=== PATIENT | female | born 1975 | race Caucasian/White ===

== ENCOUNTER 2018-02-03 19:07 | Emergency (ER) | payer SELFPAY ==
[2018-02-03 19:19] VITALS: BP 148/78; PULSE 98; O2SAT 97
--- NOTE | 2018-02-03 19:30 | ERPHSYRPT ---
- History of Present Illness Time Seen by Provider: 02/03/18 19:20 Source: patient, police Exam Limitations: clinical condition Patient Subjective Stated Complaint: per law enforcement, pt was pulled over and blew 0.24 on breathalyzer. Triage Nursing Assessment: pt alert and oriented. answers questions approp. pt ambulatory with steady gait noted on arrval with law enforcement respirations nonlabored with lungs cta. pt tearful. Physician History: PATIENT BROUGHT INTO EMERGENCY ROOM BY POLICE FOR LEGAL BLOOD DRAW AND MEDICAL CLEARANCE FOR POLICE CUSTODY. DENIES INGESTION OF STREET DRUGS. Timing/Duration: today Associated Symptoms: denies symptoms Allergies/Adverse Reactions: No Known Drug Allergies Allergy (Verified 02/03/18 19:20) Home Medications: Fluoxetine HCl [Prozac] 40 mg PO DAILY 02/03/18 [History] Hx Tetanus, Diphtheria Vaccination/Date Given: Yes Hx Influenza Vaccination/Date Given: No Hx Pneumococcal Vaccination/Date Given: No Immunizations Up to Date: Yes - Review of Systems Constitutional: No Fever, No Chills Eyes: No Symptoms Ears, Nose, & Throat: No Symptoms Respiratory: No Symptoms, No Cough, No Dyspnea Cardiac: No Symptoms, No Chest Pain, No Edema, No Syncope Abdominal/Gastrointestinal: No Symptoms, No Abdominal Pain, No Nausea, No Vomiting, No Diarrhea Genitourinary Symptoms: No Symptoms, No Dysuria Musculoskeletal: No Symptoms, No Back Pain, No Neck Pain Skin: No Rash Neurological: No Symptoms, No Dizziness, No Focal Weakness, No Sensory Changes Psychological: No Symptoms Endocrine: No Symptoms All Other Systems: Reviewed and Negative - Past Medical History Pertinent Past Medical History: Yes Psycho-Social History: Depression - Past Surgical History Past Surgical History: No - Social History Smoking Status: Light tobacco smoker Exposure to second hand smoke: No Patient Lives Alone: No - Female History Hx Last Menstrual Period: 3 weeks Hx Now: No - Nursing Vital Signs Nursing Vital Signs: Initial Vital Signs Pulse Rate 98 H 02/03/18 19:08 Respiratory Rate 18 02/03/18 19:08 Blood Pressure 148/78 02/03/18 19:08 O2 Sat by Pulse Oximetry 97 02/03/18 19:08 Pain Scale Pain Intensity 0 - Physical Exam General Appearance: no apparent distress, alert Eye Exam: PERRL/EOMI, eyes nml inspection, other (STRONG ODOR OF ALCOHOL ON BREATH) Ears, Nose, Throat Exam: normal ENT inspection, TMs normal, pharynx normal, moist mucous membranes Neck Exam: normal inspection, non-tender, supple, full range of motion Respiratory Exam: normal breath sounds, lungs clear, No respiratory distress Cardiovascular Exam: regular rate/rhythm, normal heart sounds, normal peripheral pulses Gastrointestinal/Abdomen Exam: soft, normal bowel sounds, No tenderness, No mass Back Exam: normal inspection, normal range of motion, No CVA tenderness, No vertebral tenderness Extremity Exam: normal inspection, normal range of motion, pelvis stable Neurologic Exam: alert, oriented x 3, cooperative, normal mood/affect, nml cerebellar function, nml station & gait, sensation nml, No motor deficits Skin Exam: normal color, warm, dry, No rash Lymphatic Exam: No adenopathy SpO2 Interpretation: normal SpO2: 97 Oxygen Delivery: Room Air Ordered Tests: Active Orders 24 hr Category Date Time Status ETHYL ALCOHOL Stat Lab 02/03/18 19:38 Completed Urine Triage Profile Stat Lab 02/03/18 19:25 Ordered Lab/Rad Data: Laboratory Results 02/03/18 Range/Units 19:38 Ethyl Alcohol 272 H (0-9) MG/DL - Progress Progress Note: 02/03/18 20:00 AMBULATES INTO EMERGENCY ROOM WITH NORMAL GAIT - Departure Time of Disposition: 20:00 Departure Disposition: [facility] Clinical Impression: ALCOHOL INTOXICATION Condition: Stable Critical Care Time: No Additional Instructions: FOLLOWUP WITH YOUR PRIMARY CARE PROVIDER NEEDED.
== END 2018-02-03 20:08 | disposition home or self-care (01) ==
LOC: ED 19:07
DX: F10.129 Alcohol abuse with intoxication, unspecified (principal)
CPT/HCPCS: 36415; 99282; 99283; G0480